=== PATIENT | female | born 1990 | race African-American/Black ===

== ENCOUNTER 2021-12-22 19:43 | Emergency (ER) | payer MEDICAID, OTHER ==
[~2021-12-22] VITALS: Ht 162.6 cm; Wt 59.4 kg
[2021-12-22 20:00] VITALS: BP 121/80
[2021-12-22] MEDS ORDERED: AMOX-430 PO (21:18)
[2021-12-22] MEDS ORDERED: ACETAMINOPHEN ES 500 MG TABLET ONE (21:22)
[2021-12-22] MEDS ORDERED: AMOX/CLAVULANATE 875 MG TABLET ONE (21:22)
[2021-12-22] MEDS ORDERED: ACETAMINOPHEN 325 MG TABLET PO ONE (21:30)
[2021-12-22] MEDS ORDERED: AMOX/CLAVULANATE 875 MG TABLET PO ONE (21:30)
== END 2021-12-22 21:37 | disposition home or self-care (01) ==
LOC: ER 19:44
DX: J02.9 Acute pharyngitis, unspecified (principal)